=== PATIENT | female | born 1950 | race Caucasian/White ===

== ENCOUNTER 2024-08-17 07:40 | Outpatient (CLI) | payer MEDICARE, BC | END 2024-08-17 23:59 | disposition home or self-care (01) | LOC: MRI02 07:40 | PROVIDERS: ATTEND Family Medicine Sports Medicine | DX: M17.11 Unilateral primary osteoarthritis, right knee (principal); M25.561 Pain in right knee; M17.12 Unilateral primary osteoarthritis, left knee; M25.562 Pain in left knee; M84.373A Stress fracture, unspecified ankle, initial encounter for fracture; R60.0 Localized edema | CPT/HCPCS: 73721 ==